=== PATIENT | female | born 1980 | race Caucasian/White ===

== ENCOUNTER 2022-11-27 10:45 | Outpatient (CLI) | payer OTHER | END 2022-11-27 10:46 | disposition home or self-care (01) | LOC: CSHMAMMO 10:45 | PROVIDERS: ATTEND Family Medicine | DX: Z12.31 Encounter for screening mammogram for malignant neoplasm of breast (principal); N64.89 Other specified disorders of breast | CPT/HCPCS: 77063; 77067 ==

== ENCOUNTER 2022-12-05 08:52 | Outpatient (CLI) | payer OTHER | END 2022-12-05 08:53 | disposition home or self-care (01) | LOC: CSHULT 08:52 | PROVIDERS: ATTEND Family Medicine | DX: N64.89 Other specified disorders of breast (principal) ==

== ENCOUNTER 2023-03-29 10:19 | Outpatient (CLI) | payer OTHER | END 2023-03-29 10:20 | disposition home or self-care (01) | LOC: CSHRAD 10:19 | PROVIDERS: ATTEND Orthopaedic Surgery | DX: M54.2 Cervicalgia (principal) | CPT/HCPCS: 72050 ==

== ENCOUNTER 2023-06-08 13:35 | Outpatient (CLI) | payer OTHER | END 2023-06-08 13:36 | disposition home or self-care (01) | LOC: CSHMAMMO 13:35 | PROVIDERS: ATTEND Family Medicine | DX: R92.8 Other abnormal and inconclusive findings on diagnostic imaging of breast (principal); N63.10 Unspecified lump in the right breast, unspecified quadrant; N64.89 Other specified disorders of breast | CPT/HCPCS: G0279 ==

== ENCOUNTER 2023-12-07 10:11 | Outpatient (CLI) | payer OTHER | END 2023-12-07 10:12 | disposition home or self-care (01) | LOC: CSHMAMMO 10:11 | PROVIDERS: ATTEND Family Medicine | DX: Z12.31 Encounter for screening mammogram for malignant neoplasm of breast (principal) | CPT/HCPCS: 77063; 77067 ==

== ENCOUNTER 2024-08-29 21:33 | Emergency (ER) | payer OTHER ==
[2024-08-29] MEDS ORDERED: Droperidol 5 MG/2 ML VIAL ONE (23:18)
== END 2024-08-30 01:30 | disposition home or self-care (01) ==
LOC: CSHERS 21:33
DX: A05.9 Bacterial foodborne intoxication, unspecified (principal); E03.9 Hypothyroidism, unspecified; Z79.890 Hormone replacement therapy
CPT/HCPCS: 36416; 96361; 96374; J1790

== ENCOUNTER 2025-06-09 10:02 | Outpatient (CLI) | payer OTHER | END 2025-06-09 10:03 | disposition home or self-care (01) | LOC: CSHMAMMO 10:02 | PROVIDERS: ATTEND Family Medicine | DX: Z12.31 Encounter for screening mammogram for malignant neoplasm of breast (principal) | CPT/HCPCS: 77063; 77067 ==